=== PATIENT | male | born 1980 | race African-American/Black ===

== ENCOUNTER 2022-02-24 18:45 | Emergency (ER) | payer SELFPAY ==
[2022-02-24 18:48] VITALS: BP 170/105; PULSE 100; RESP 20; TEMP 36.7; O2SAT 100
--- NOTE | 2022-02-24 18:53 | ED.URI ---
HPI - URI/Sore Throat General Chief Complaint: Upper Respiratory Infection Stated Complaint: asthma, bronchitis, cough Time Seen by Provider: 02/24/22 18:53 Source: patient and RN notes reviewed Mode of arrival: ambulatory Limitations: no limitations History of Present Illness HPI Narrative: patient has been traveling from [facility]. He is here taking care of 1 of his family members was diagnosed with cancer. He has a history of asthma and chronic bronchitis. He usually gets his prescriptions through his primary care [facility] and [facility]. Unfortunately his doctor said he would not be able to send any prescriptions to [facility]. He says that he has had this before and that Tussionex and a short course of steroids seemed to work best for him. He denies any fever chills. He denies any chest pain. He denies any nausea vomiting, headache, sore throat. he has been using his albuterol and Atrovent at home. MD elicited complaint: cough and sore throat Pertinent past history: COPD and asthma Onset (ago): day(s) (3) Consistency: constant Severity: moderate Description of mucous: clear Able to tolerate fluids by mouth: Yes Exacerbating factors: other ( Coughing cold weather) Relieving factors: nothing Context: recent travel Associated symptoms: denies other symptoms Treatments prior to arrival: none Related Data Home Medications Medication Instructions Recorded Confirmed albuterol 2 puff inhalation DIRECTED 02/24/22 02/24/22 Allergies Allergy/AdvReac Type Severity Reaction Status Date / Time No Known Allergies Allergy Verified 02/24/22 18:56 Review of Systems Review of Systems: All systems reviewed & are unremarkable except as noted in HPI and below PMFSH Past Medical History Medical History (Updated 02/24/22 @ 19:04 by Espinoza Kimbrough MD) Asthma COPD (chronic obstructive pulmonary disease) Obesity Surgical History Surgical History (Updated 02/24/22 @ 19:00 by Espinoaz Kimbrough MD) No pertinent past surgical history Social History Social History (Updated 02/24/22 @ 19:00 by Espinoza Kimbrough MD) Smoking status: Former smoker Exam Const: General: healthy appearing, no acute distress and alert Nutritional Appearance: well nourished and obese Orientation/consciousness: patient oriented x3 Limitations: no limitations HENMT: Head: normal to inspection Ears: external ears normal Face and sinus: normal facial exam Mouth: Yes moist mucous membranes Eyes: Conjunctivae: conjunctivae normal Pupils: Equal, round and reactive pupils present EOM: EOMs intact bilaterally Neck: Neck: normal visual inspection Resp: Effort & Inspection: normal respiratory effort Auscultation: rhonchi ( very mild scattered) Other: short air exchange Cardio: Rate: regular rate Rhythm: regular rhythm GI: GI Palp: Yes Soft to palpation and No Tenderness to palpation present (GI) Auscultation: normal bowel sounds Back/Spine/Pelvis: Cervical Spine: cervical ROM normal Thoracic/Lumbar Spine: thoraco-lumbar ROM normal Skin: General skin exam: normal color Rashes: no rashes Neuro: General: patient oriented x3, moves all extremities, no focal motor deficits and CN's II-XI intact bilaterally Speech: normal speech Gait exam (Neuro): Normal gait present Extrem: General: normal to inspection and no clubbing, cyanosis or edema Psych: Mental Status: mental status grossly normal Affect: normal affect Attitude: cooperative Discharge Plan Discharge Clinical Impression: COPD (chronic obstructive pulmonary disease) Qualifiers: COPD type: chronic bronchitis Chronic bronchitis type: simple Qualified Code(s): J41.0 - Simple chronic bronchitis Patient Disposition: Home, Self-Care Condition: Stable Instructions: COPD (Chronic Obstructive Pulmonary Disease) (ED), Chronic Bronchitis (ED) Additional Instructions: Continue to use your albuterol and Atrovent medications. Any worsening symptoms fever chills difficult
== END 2022-02-24 19:10 | disposition home or self-care (01) ==
PROVIDERS: Emergency Provider Emergency Medicine
DX: J41.0 Simple chronic bronchitis (principal)
CPT/HCPCS: 99283